=== PATIENT | female | born 1955 | race Caucasian/White ===

== ENCOUNTER → 2016-09-09 | Outpatient (CLI) | payer OTHER | LOC: MAMO 12:47 | DX: Z12.31 Encounter for screening mammogram for malignant neoplasm of breast (principal); M81.0 Age-related osteoporosis without current pathological fracture; M85.852 Other specified disorders of bone density and structure, left thigh; Z78.0 Asymptomatic menopausal state | CPT/HCPCS: 77080; G0202 ==

== ENCOUNTER 2020-07-06 11:41 | Inpatient (IN) | payer OTHER ==
[~2020-07-06] VITALS: Ht 172.7 cm; Wt 60.8 kg
[~2020-07-06 11:41] MED LIST: ASPIR 8181 MG PO; CELEBREX 200MG200 MG PO; COLCHICINE0.6 M1 PO; DICLOFENAC SOD100 GM TP; FLEXERIL 10 MG10 MG PO; HYDROXYZINE HCL50 MG PO; IPRAT-ALBUT 0.5-3 ML NEB; KENALOG CREAM 015 GM TOP; LIPITOR TAB 2020 MG PO; LOPRESSOR 25 MG25 MG PO; NORVASC 5 MG TAB5 MG PO; OMEPRAZOLE20 MG PO; OYSTER SHELL C500 MG PO; PREMARIN0.625 MG PO; PROAIR HFA8.5 GM INH; SUBOXONE 8 MG-1 EACH SL; SYMBICORT 160-1 INHA INH; TIROSINT50 MCG PO; ZYLOPRIM 300 M300 MG PO
[2020-07-06 12:40] LABS: HEMOGLOBIN 17.2 gm/dl (12.3-15.3); RED BLOOD COUNT 6.15 M/UL (4.00-5.10); WHITE BLOOD COUNT 6.5 K/UL (4.5-11.0)
[2020-07-06 13:03] LABS: BUN/CREATININE RATIO 23 (0-10)
[2020-07-07 06:24] LABS: HEMOGLOBIN 17.8 gm/dl (12.3-15.3); RED BLOOD COUNT 6.36 M/UL (4.00-5.10)
[2020-07-07 06:26] LABS: WHITE BLOOD COUNT 3.2 K/UL (4.5-11.0)
[2020-07-07 06:50] LABS: BUN/CREATININE RATIO 26 (0-10)
[2020-07-07] MEDS ORDERED: GABAPENTIN800 MG PO (11:31)
--- NOTE | 2020-07-07 15:43 | NUR ---
DISCUSSED CONV PLASMA TRANSFUSION WITH PATIENT THIS AM AND TO GET CONSENT SIGNED. PATIENT STATED SHE NEEDED TO THINK ABOUT IT AND WOULD LET ME KNOW IF SHE DECIDED TO DO THE TRANSFUSION.
[2020-07-09 04:09] LABS: HEMOGLOBIN 17.3 gm/dl (12.3-15.3); RED BLOOD COUNT 6.18 M/UL (4.00-5.10); WHITE BLOOD COUNT 6.3 K/UL (4.5-11.0)
[2020-07-09 04:21] LABS: BUN/CREATININE RATIO 30 (0-10)
[2020-07-10 02:48] LABS: HEMOGLOBIN 16.4 gm/dl (12.3-15.3); RED BLOOD COUNT 5.84 M/UL (4.00-5.10)
[2020-07-10 02:54] LABS: WHITE BLOOD COUNT 8.3 K/UL (4.5-11.0)
[2020-07-10 03:30] LABS: BUN/CREATININE RATIO 31 (0-10)
[2020-07-11 03:23] LABS: HEMOGLOBIN 17.8 gm/dl (12.3-15.3); WHITE BLOOD COUNT 7.8 K/UL (4.5-11.0)
[2020-07-11 03:25] LABS: RED BLOOD COUNT 6.52 M/UL (4.00-5.10)
[2020-07-11 03:46] LABS: BUN/CREATININE RATIO 30 (0-10)
[2020-07-12 03:25] LABS: HEMOGLOBIN 19.1 gm/dl (12.3-15.3); RED BLOOD COUNT 6.93 M/UL (4.00-5.10)
[2020-07-12 03:33] LABS: WHITE BLOOD COUNT 13.7 K/UL (4.5-11.0)
[2020-07-12 03:49] LABS: BUN/CREATININE RATIO 38 (0-10)
[2020-07-13 02:54] LABS: HEMOGLOBIN 18.3 gm/dl (12.3-15.3); RED BLOOD COUNT 6.6 M/UL (4.00-5.10); WHITE BLOOD COUNT 11.9 K/UL (4.5-11.0)
[2020-07-13 03:19] LABS: BUN/CREATININE RATIO 34 (0-10)
[2020-07-14 02:10] LABS: HEMOGLOBIN 17.9 gm/dl (12.3-15.3); RED BLOOD COUNT 6.47 M/UL (4.00-5.10)
[2020-07-14 02:20] LABS: WHITE BLOOD COUNT 17.1 K/UL (4.5-11.0)
[2020-07-15 02:44] LABS: HEMOGLOBIN 18.3 gm/dl (12.3-15.3); RED BLOOD COUNT 6.62 M/UL (4.00-5.10); WHITE BLOOD COUNT 15.6 K/UL (4.5-11.0)
--- NOTE | 2020-07-15 23:37 | NUR ---
PATIENT IS NOT ORIENTED TO TIME OR PLACE. PATIENT IS LETHARGIC. MD AWARE OF PATIENT'S CONDITION.
[2020-07-16 03:59] LABS: HEMOGLOBIN 17.8 gm/dl (12.3-15.3); RED BLOOD COUNT 6.47 M/UL (4.00-5.10); WHITE BLOOD COUNT 14.1 K/UL (4.5-11.0)
--- NOTE | 2020-07-16 18:00 | NUR ---
PT BEING COMBATIVE. RIPPED AIRVO MASK IN HALF, REFUSING TO WEAR BIPAP WITH O2 IN THE 70'S AND HR IN THE 190'S. NOTIFIED AND ONE TIME ORDER OF TESS GIVEN A/O.
[2020-07-17 08:43] LABS: RED BLOOD COUNT 6.76 M/UL (4.00-5.10); WHITE BLOOD COUNT 16.8 K/UL (4.5-11.0)
--- NOTE | 2020-07-17 19:29 | NUR ---
CALLED DOCTOR DUE TO BLOOD SUGAR BEING TOO HIGH TO BE READ ON THE ACCUCHECK. CALLED THE DOCTOR AND SHE ORDERED ME TO GIVE HER 5 OF HUMALOG AND THEN RECHECK WITH A LAB DRAW. THE LAB DRAW THEN SHOWED 792. I CALLED AND NOTIFIED THE DOCTOR OF THE CRITICAL LAB VALUE AND SHE ORDERED 10 OF HUMALOG AND TO RECKECK IT IN 30 MINS. PT WAS STABLE AND STILL TALKING TO ME.
[2020-07-18 02:29] LABS: WHITE BLOOD COUNT 13.4 K/UL (4.5-11.0)
[2020-07-18 02:31] LABS: HEMOGLOBIN 15.5 gm/dl (12.3-15.3); RED BLOOD COUNT 5.56 M/UL (4.00-5.10)
[2020-07-18 02:54] LABS: BUN/CREATININE RATIO 44 (0-10)
[2020-07-18 19:21] LABS: BUN/CREATININE RATIO 44 (0-10)
[2020-07-19 02:58] LABS: HEMOGLOBIN 16.7 gm/dl (12.3-15.3); RED BLOOD COUNT 5.9 M/UL (4.00-5.10)
[2020-07-19 03:02] LABS: WHITE BLOOD COUNT 21.1 K/UL (4.5-11.0)
[2020-07-19 03:17] LABS: BUN/CREATININE RATIO 38 (0-10)
--- NOTE | 2020-07-19 18:45 | NUR ---
AT APPROXIMATELY 1800 I HEARD PATIENTS BED ALARM SOUNDING AND ENTERED THE ROOM AND FOUND THE PATIENT SITTING IN THE FLOOR AT THE BOTTOM OF HER BED. NO HARM WAS DONE TO THE PATIENT EXCEPT THAT SHE HAD PULLED OUT HER IV. THE PATIENT DENIES HITTING HER HEAD AND DENIES BEING IN ANY PAIN. THE PATIENT HAS FULL ROM. HAS BEEN NOTIFIED WELL DR PIERRE. DR PIERRE APPROVED FOR THE PATIENT TO GO DOWN TO CT WITH A NONREBREATHER ON. THE PATIENTS HAS BEEN SITTING WITH HER BUT HE HAD LEFT TO GO HOME TO SHOWER. THE PATIENTS BED ALARM IS ALWAYS INTACT AND THE PATIENT HAS BEEN REMINDED TO NOT GET UP WITHOUT ASSISTANCE AND TO NOT REMOVE HER AIRVO BUT THE PATIENT CONTINUES TO GET UP AND REMOVE HER AIRVO. THE PATIENT NOW HAS ANOTHER IV IN PLACE AND IS IN BED RESTING WITH TELEMETRY INTACT, AND THE BED ALARM IS ON. STAFF ASSIST WITH ALL NEEDS, CALL LIGHT WITHIN REACH.
--- NOTE | 2020-07-19 19:00 | NUR ---
PATIENT IS SEDATED BUT ANSWERS QUESTIONS APPROPRIATELY. BRIEF PERIODS OF CONFUSION. MD AWARE.
[2020-07-20 03:07] LABS: HEMOGLOBIN 16.1 gm/dl (12.3-15.3); RED BLOOD COUNT 5.72 M/UL (4.00-5.10); WHITE BLOOD COUNT 16.3 K/UL (4.5-11.0)
[2020-07-20 03:23] LABS: BUN/CREATININE RATIO 41 (0-10)
[2020-07-21 08:02] LABS: HEMOGLOBIN 16.8 gm/dl (12.3-15.3); RED BLOOD COUNT 5.94 M/UL (4.00-5.10); WHITE BLOOD COUNT 16.6 K/UL (4.5-11.0)
[2020-07-21 08:15] LABS: BUN/CREATININE RATIO 42 (0-10)
--- NOTE | 2020-07-21 11:00 | NUR ---
PATIENT TACHYCARDIC AND TACHYPNEC, ORIENTED TO SELF AND STATED SHE WAS IN [place] WHEN ASKED WHERE SHE WAS. WAS QUICK TO EXPLAIN TO PATIENT THAT SHE KNEW WHERE SHE WAS AND PT STATED [facility] AFTER REORIENTED. PT RESTLESS AND AGITATED. EXPLAINED THAT HE WAS UNHAPPY WITH CARE SINCE HOSPITAL ADMISSION AND THAT "THEY WERE LEAVING" EXPLAINED THAT HE WANTED PATIENT TO BE ABLE TO BREAK OFF PIECES OF HER SUBOXONE A LITTLE AT A TIME BECAUSE THAT IS WHAT SHE DOES AT HOME. I EXPLAINED TO PATIENT THAT IS NOT LEGAL FOR US TO DO PER HOSPITAL PHARMACY.
--- NOTE | 2020-07-21 11:24 | NUR ---
WENT IN THE ROOM DUE TO PATIENT BEING TACHYCARDIC AND DECLINING OXYGEN SATURATION ON 5L NC. PT AT THE EDGE OF THE BED, FIDGITING AND RESTLESS. EXPLAINED TO PATIENT THAT I WAS GOING TO GIVE HER GEODON TO HELP WITH AGITATION AND ANXIETY. PATIENTS REFUSED TO LET ME GIVE INJECTION. PT STATED THAT SHE WAS NOT GETTING ANYTHING THAT THE DID NOT APPROVE OF.
--- NOTE | 2020-07-21 11:27 | NUR ---
DR NEWBERRY AND BERNY PINEDA NOTFIED OF PATIENTS DECLINING STATUS. PT NON COMPLIANT WITH CARE BEING PROVIDED. INTERFERING WITH CARE OF PATIENT. RISKS OF NONCOMPLIANT CARE EXPLAINED TO PATIENT AND . DR NEWBERRY AT BEDSIDE TO EXPLAIN RISKS OF MORTALITY IF PATIENT LEAVES AMA. ALTERNATIVES PROVIDED SUCH INCREASING PATIENTS GABAPENTIN REQUESTED BY THE OFFERED BY MD. EXPLAINS THAT HE IS TAKING HIS HOME OR TO ANOTHER HOSPITAL. [employer] CONTACTED.
--- NOTE | 2020-07-21 13:42 | NUR ---
CONTINUED TO EXPLAIN THE RISKS TO PATIENT AND THAT IF PATIENT GOES HOME AND CHOOSES TO DISCHARGE FROM HOSPITAL THAT SHE IS AT HIGH RISK FOR MORTALITY. ASKED THE PATIENT AND IF THERE WAS ANYTHING I COULD DO FROM A NURSES STANDPOINT OR REQUEST OF PHYSICIAN THAT WOULD CHANGE THEIR DECISION ABOUT DISCHARGING FROM HOPSITAL. PATIENT STATED THAT SHE IS GOING HOME NO MATTER WHAT. I EXPLAINED TO PATIENT THAT SHE IS ON A HIGH AMOUNT OF OXYGEN 6L NASAL CANNULA WITH AN OXYGEN SATURATION OF 88 PERCENT AND HEART RATE OF 118. DISCUSSED THE EFFECTS OF LOW OXYGEN AND HIGH HEART RATE WITH THE PATIENT AND . STATED HE IS AWARE OF THE HIGH MORTALITY RISKS AND IS TAKING THE PATIENT HOME. AGREES WITH THE PLAN.
--- NOTE | 2020-07-21 14:00 | NUR ---
RISKS OF MORTALITY EXPLAINED AGAIN IF PATIENT LEAVES AGAINST MEDICAL ADVICE. EXPLAINED TO THAT HE COULD BE HELD RESPONSIBLE IF SOMETHING HAPPENS TO PATIENT. IS AWARE AND SAYS HE IS TAKING PATIENT TO [facility].
== END 2020-07-21 16:00 | disposition left against medical advice (07) | DRG 177 ==
LOC: ER1 11:41 → CDU 15:38 → PROG CARE 15:38
PROVIDERS: Family Medicine; Internal Medicine; Student in an Organized Health Care Education/Training Program; ADMIT Internal Medicine Infectious Disease
PROC: XW13325 Transfusion of Convalescent Plasma (Nonautologous) into Peripheral Vein, Percutaneous Approach, New Technology Group 5 (ICD-10-PCS; 2020-07-06)
PROC: XW033E5 Introduction of Remdesivir Anti-infective into Peripheral Vein, Percutaneous Approach, New Technology Group 5 (ICD-10-PCS; principal; 2020-07-07)
PROC: 8E0ZXY6 Isolation (ICD-10-PCS; 2020-07-07)
PROC: 5A09457 Assistance with Respiratory Ventilation, 24-96 Consecutive Hours, Continuous Positive Airway Pressure (ICD-10-PCS; 2020-07-15)
DX: U07.1 COVID-19 (principal); J12.82 Pneumonia due to coronavirus disease 2019; G93.41 Metabolic encephalopathy; J80 Acute respiratory distress syndrome; J44.0 Chronic obstructive pulmonary disease with (acute) lower respiratory infection; J44.1 Chronic obstructive pulmonary disease with (acute) exacerbation; J98.11 Atelectasis; F11.20 Opioid dependence, uncomplicated; F06.2 Psychotic disorder with delusions due to known physiological condition; E87.6 Hypokalemia; G89.4 Chronic pain syndrome; T36.1X5A Adverse effect of cephalosporins and other beta-lactam antibiotics, initial encounter; R50.9 Fever, unspecified; Z96.611 Presence of right artificial shoulder joint; K21.9 Gastro-esophageal reflux disease without esophagitis; M10.9 Gout, unspecified; I48.91 Unspecified atrial fibrillation; I10 Essential (primary) hypertension; E03.9 Hypothyroidism, unspecified; Z87.891 Personal history of nicotine dependence; I25.2 Old myocardial infarction; Z79.82 Long term (current) use of aspirin; Z79.899 Other long term (current) drug therapy; Z82.49 Family history of ischemic heart disease and other diseases of the circulatory system; F29 Unspecified psychosis not due to a substance or known physiological condition; E11.65 Type 2 diabetes mellitus with hyperglycemia; D70.2 Other drug-induced agranulocytosis; T38.0X5A Adverse effect of glucocorticoids and synthetic analogues, initial encounter
CPT/HCPCS: 0240U; 36415; 36600; 70450; 71045; 74018; 80048; 80053; 80061; 81001; 82140; 82550; 82553; 82728; 82803; 82947; 82962; 83036; 83605; 83615; 83735; 83874; 83880; 84100; 84443; 84484; 85025; 85027; 85379; 85610; 85730; 86900; 86901; 86927; 87040; 87086; 93005; 94640; 94660; 94664; 94760; 96365; 96366; 96368; 96375; 97110; 97116-GP-CQ; 97161; 97166; 97530; 97530-GP-CQ; 99285; J0456; J0696; J1100; J1200; J1940; J1956; J2060; J2185; J3486; J7030; J7050

== ENCOUNTER → 2020-11-18 | Outpatient (CLI) | payer MEDICARE, OTHER ==
[~2020-11-18] MED LIST changes: +GABAPENTIN800 MG PO
== END ==
LOC: KOH-I 12:56
DX: M54.5 Low back pain (principal)
CPT/HCPCS: 72100